=== PATIENT | male | born 1975 | race African-American/Black ===

== ENCOUNTER 2017-04-14 22:30 | Emergency (ER) | payer BC ==
[~2017-04-14] VITALS: Ht 180.3 cm; Wt 90.7 kg
[~2017-04-14 22:30] MED LIST: ALBUTEROL17 GM INH; CLARITIN10 M2 PO; GUAIFENESIN W/C10 M1 PO; MEDROL4 MG/DOSE- PO; OCEAN45 ML; PANTOPRAZOLE SO40 MG PO; PREDNISONE10 MG/DOSE PO; SYMBICORT INH; VENTOLIN5 MG/ML IH
== END 2017-04-14 23:45 | disposition home or self-care (01) ==
LOC: CED 22:30 → CFTX 22:30
DX: J30.2 Other seasonal allergic rhinitis (principal); R07.0 Pain in throat; J44.9 Chronic obstructive pulmonary disease, unspecified; Z88.5 Allergy status to narcotic agent; Z88.1 Allergy status to other antibiotic agents
CPT/HCPCS: 99282